=== PATIENT | male | born 1985 | race Caucasian/White ===

== ENCOUNTER 2024-11-06 05:38 | Emergency (ER) | payer MEDICAID, OTHER ==
[~2024-11-06] VITALS: Ht 175.3 cm; Wt 81.0 kg
[2024-11-06 05:44] VITALS: O2SAT 99
[2024-11-06] MEDS: IBUPROFEN 400MG TABLET PO ONE (06:23)
[2024-11-06 07:01] VITALS: BP 127/89; PULSE 64; RESP 15; TEMP 36.8; O2SAT 95
== END 2024-11-06 07:09 | disposition home or self-care (01) ==
LOC: ER 05:38
DX: M25.561 Pain in right knee (principal); V19.9XXA Pedal cyclist (driver) (passenger) injured in unspecified traffic accident, initial encounter; Y93.89 Activity, other specified; Y92.89 Other specified places as the place of occurrence of the external cause; Y99.8 Other external cause status
CPT/HCPCS: 29505; 73560; 99283